=== PATIENT | male | born 1975 | race Two or more races ===

== ENCOUNTER 2017-12-06 04:53 | Emergency (ER) | payer SELFPAY ==
[~2017-12-06] VITALS: Ht 175.3 cm; Wt 109.0 kg
[2017-12-06 04:55] VITALS: BP 145/89
== END 2017-12-06 06:22 | disposition home or self-care (01) ==
LOC: ED 06:05
DX: M10.072 Idiopathic gout, left ankle and foot (principal); M10.071 Idiopathic gout, right ankle and foot
CPT/HCPCS: 99283